=== PATIENT | female | born 1985 | race American Indian/Alaskan Native ===

== ENCOUNTER 2017-10-20 15:21 | Emergency (ER) | payer OTHER ==
[2017-10-20 16:36] LABS: Bacteria,Urine 1+ /HPF (Negative); Bilirubin,Urine NEG (Negative); Blood,Urine NEG (Negative); Color,Urine Yellow (Yellow); Mucus,Urine FEW /HPF; Protein,Urine <15 mg/dL mg/dL (Negative); Urobilinogen,Urine < 2.0 mg/dL (<2.0); WBC,Urine < 1.0 /HPF (0.0-6.0)
[2017-10-20 16:39] LABS: HCG Qualitative,Urine Negative (Negative)
[2017-10-20] MEDS ORDERED: MOTRIN PO ONE (22:45)
--- NOTE | 2017-10-20 22:45 | Emergency Department Report ---
Upper Extremity - HPI Chief Complaint: Extremity Injury, Upper Stated Complaint: LEFT ARM PAIN Time Seen by Provider: 10/20/17 21:59 Upper Extremity: Left Shoulder Occurred When: 3 Days Severity: moderate Symptoms: Yes Pain with Movement, No Deformity, No Limited Range of Movement, No Numbness, No Weakness, No Swelling, No Bruising/Ecchymosis, No Laceration or Abrasion Other History: 32-year-old female past medical history hypertension presents with complaint of left-sided shoulder pain radiating down left arm for approximately 1 week. Denies fevers chills nausea vomiting headache blurry vision shortness of breath. States it starts in left shoulder and radiates down left arm. Denies any left upper extremity trauma. States she ran out of blood pressure medicine over a week ago. Patient is awake alert and oriented 3. Patient is irate that she has been waiting to be seen in the waiting room. Accompanied by friends/family members at bedside. States that pain is worse with palpation of left upper shoulder and movement. Patient is visibly ranging her left shoulder without difficulty. Denies any rash. States she takes lisinopril. Denies any family history of [place]. Denies being on control. Denies any personal history of PE or DVT. Denies any pleuritic chest pain at this time. ED Review of Systems ROS: Stated complaint: LEFT ARM PAIN Other details as noted in HPI Constitutional: denies: chills, fever Eyes: denies: eye pain, eye discharge, vision change ENT: denies: ear pain, throat pain Respiratory: denies: cough, shortness of breath, wheezing Cardiovascular: denies: chest pain, palpitations Endocrine: no symptoms reported Gastrointestinal: denies: abdominal pain, nausea, diarrhea Genitourinary: denies: urgency, dysuria, discharge Musculoskeletal: as per HPI, arthralgia (left upper shoulder ache). denies: back pain, joint swelling Skin: denies: rash, lesions Neurological: denies: headache, weakness, paresthesias Psychiatric: denies: anxiety, depression Hematological/Lymphatic: denies: easy bleeding, easy bruising ED Past Medical Hx - Past Medical History Previous Medical History?: Yes - Surgical History Past Surgical History?: Yes Hx Cholecystectomy: Yes Additional Surgical History: x 2 - Social History Smoking Status: Never Smoker Substance Use Type: Alcohol, Prescribed - Medications Home Medications: Home Medications Medication Instructions Recorded Confirmed Last Taken Type Naproxen 500 mg PO BID PRN #20 tablet 10/21/17 Unknown Rx Upper Extremity Exam - Exam General: Vital signs noted. No distress. Alert and acting appropriately. Head and Torso: No HEENT Abnormality, No Neck Tenderness, No Chest/Lungs Abnormality (lungs clear to auscultation), No Abdominal Tenderness, No Back Tenderness Shoulder Exam: Yes Shoulder Tenderness (some reproducible tenderness on palpation of left upper deltoid region), Yes Normal Range of Motion in Shoulder (abduction and abduction and internal and external rotation clinically intact), No Clavicle Tenderness, No Shoulder Deformity, No AC Joint Tenderness Arm Exam: No Arm/Humerus Tenderness, No Arm Deformity Elbow: No Elbow Tenderness, No Normal Range of Motion in Elbow, No Elbow Deformity Forearm: No Forearm Tenderness, No Forearm Deformity, No Pain with Pronation, No Pain with Supination Wrist: Yes Normal ROM in Wrist (flexion and extension intact), No Wrist Tenderness, No Wrist Deformity, No Snuffbox Tenderness, No Pain with Axial Thumb Compression Hand: Yes Normal ROM in Digit(s), No Hand Tenderness, No Hand Deformity, No Digit Tenderness, No Digit(s) Deformity, No Tendon Dysfunction CMS Exam: Yes Normal Distal Pulses (distal ulnar radial and brachial pulses strong to palpation), Yes Normal Capillary Refill (capillary refill less than one second all fingers), Yes Normal Distal Sensation (distal sensation clinically intact left upper extremity), No Broken Skin ED Course Vital Signs 10/20/17 15:58 Temperature 98.9 F Pulse Rate 105 H Respiratory 20 Rate Blood Pressure 136/95 O2 Sat by Pulse 98 Oximetry ED Medical Decision Making - Lab Data Result diagrams: 10/20/17 23:09 - Medical Decision Making A/P: Left upper chest wall pain, left shoulder discomfort 1-labs are unremarkable, negative d-dimer, negative troponin and EKG is sinus with possible LVH pattern. Heart Score 2 points Low Score (0-3 points) Risk of MACE of 0.9-1.7%. 2-follow-up with primary care and cardiology 3-naproxen when necessary. Pain is reproducible with palpation of left upper chest wall and left shoulder. 4-since patient states that there is some tingling radiating from left shoulder down left arm is possible there is a component of cervical radiculopathy. Will refer patient to outpatient neurosurgery 5-advised patient to return to the ED for any fevers chills chest pain palpitations shortness of breath nausea vomiting paralysis or severe paresthesias of left upper extremity or any associated shortness of breath and diaphoresis with associated chest pain. Critical care attestation.: If time is entered above; I have spent that time in minutes in the direct care of this critically ill patient, excluding procedure time. ED Disposition Clinical Impression: Chest wall pain Left shoulder pain Qualifiers: Chronicity: acute Qualified Code(s): M25.512 - Pain in left shoulder Disposition: DC- TO HOME OR SELFCARE Is pt being admited?: No Does the pt Need Aspirin: No Condition: Stable Instructions: Chest Pain (ED), Costochondritis (ED), Musculoskeletal Pain (ED) Prescriptions: Naproxen 500 mg PO BID PRN #20 tablet PRN Reason: Pain Referrals: [facility] [Provider Group] - 3-5 Days [facility] [Provider Group] - 3-5 Days KACI BARTHOLOMEW MD [Staff Physician] - 3-[address] [facility] [place] [Outside] - 3-5 Days Time of Disposition: 00:40
--- NOTE | 2017-10-20 23:07 | XRay Report ---
FINAL REPORT PROCEDURE: XR CHEST ROUTINE 2V TECHNIQUE: PA and lateral chest radiographs were obtained. CPT 82688 HISTORY: left upper chest wall pain COMPARISON: No prior studies are available for comparison. FINDINGS: Heart: Normal. Mediastinum/Vessels: Normal. Lungs/Pleural space: Normal. Bony thorax: No acute osseous abnormality. Other: IMPRESSION: Normal examination.
--- NOTE | 2017-10-20 23:10 | XRay Report ---
FINAL REPORT PROCEDURE: XR SHOULDER 2+V LT TECHNIQUE: LEFT shoulder radiographs including AP views in internal and external rotation. CPT 22889 HISTORY: left shoulder pain COMPARISON: No prior studies are available for comparison. FINDINGS: Fracture (s) and/or Dislocation(s): None . Joint space(s): Normal . Soft tissues: Normal . Bone mineralization: Normal . Foreign bodies: None . IMPRESSION: Normal Examination
[2017-10-21 00:10] LABS: BUN/Creatinine Ratio 16; Blood Urea Nitrogen 13 mg/dL (7-17); Calcium 8.6 mg/dL (8.4-10.2); Hemolysis Index 5
[2017-10-21 00:34] LABS: Basophils % (Auto) 0.3 % (0.0-1.8); Eosinophils # (Auto) 0.2 K/mm3 (0.0-0.4); Hematocrit 37.2 % (30.3-42.9); Hemoglobin 12.4 gm/dl (10.1-14.3); Lymphocytes # (Auto) 2.9 K/mm3 (1.2-5.4); Lymphocytes % (Auto) 37.6 % (13.4-35.0); Mean Corpuscular HGB Conc 33 % (30-34); Mean Corpuscular Hemoglobin 29 pg (28-32); Mean Corpuscular Volume 86 fl (79-97); Monocytes # (Auto) 0.6 K/mm3 (0.0-0.8); Monocytes % (Auto) 7.5 % (0.0-7.3); Platelet Count 194 K/mm3 (140-440); Red Blood Count 4.33 M/mm3 (3.65-5.03)
[2017-10-21 00:59] VITALS: BP 144/96
== END 2017-10-21 00:42 | disposition home or self-care (01) ==
LOC: ED 15:21
DX: M25.512 Pain in left shoulder (principal); R07.89 Other chest pain
CPT/HCPCS: 36415; 71046; 80048; 81001; 81025; 84484; 85025; 85379; 93005; 93010; 99284